=== PATIENT | male | born 2000 | race Caucasian/White ===

== ENCOUNTER 2024-06-10 11:03 | Emergency (ER) | payer BC, OTHER, SELFPAY ==
[2024-06-10 11:21] VITALS: BP 170/99; PULSE 98; RESP 18; TEMP 37.1; O2SAT 97; BMI 29.2
--- NOTE | 2024-06-10 11:22 | XR_ITS ---
Examination: Foot, right, 3 views Technique: AP, oblique, lateral views foot, 3 views Date and time of exam: January 09, 2024 1127 hrs. Indications: Injury to the foot today, foot pain no acute fracture No dislocation No foreign body Impression: No acute fracture
--- NOTE | 2024-06-10 11:22 | XR_ITS ---
EXAMINATION: Ankle, right 3 views . Technique: Ankle AP, oblique, lateral 3 views Date and time of exam: June 10, 2024 1112 hrs. Indications: Injury to the ankle today, ankle pain Findings: No acute fracture No interval dislocation Lateral malleolar soft tissue swelling Impression: No acute fracture
--- NOTE | 2024-06-10 11:59 | PD.EDLOWEX ---
Lower Extremity Injury RME/HPI General Chief Complaint: Extremity Injury, Lower Stated Complaint: RIGHT ANKLE INJURY Time Seen by Provider: 06/10/24 11:11 Arrival date/time: 06/10/24 11:03 23-year-old male presents emergency department complains of right foot and ankle swelling after injury while kicking a soccer ball yesterday. Limitations: no limitations Related Data Previous Rx's ?Medication ?Instructions ?Recorded Bacitracin/Polymyxin B Sulfate 3.5 gm OP TID 5 days ##0 03/05/13 (Bacit-Polymyxin Eye Oint) ibuprofen 800 mg tablet 800 mg PO TID PRN pain #30 tabs 06/10/24 Allergies Allergy/AdvReac Type Severity Reaction Status Date / Time NKA* Allergy Uncoded 06/10/24 11:05 Review of Systems Review of Systems Systems Reviewed: All systems reviewed, normal except as documented Constitutional Constitutional: Reports system reviewed and no additional complaints, except as documented, Denies fever(s) and Denies headache(s) Eyes Eyes: Reports system reviewed and no additional complaints, except as documented and Denies blurry vision ENT Ears, Nose, Mouth, and Throat: Reports system reviewed and no additional complaints, except as documented, Denies headache(s), Denies nasal congestion and Denies nasal discharge Cardiovascular Cardiovascular: Reports system reviewed and no additional complaints, except as documented, Denies chest pain and Denies dyspnea Respiratory Respiratory: Reports system reviewed and no additional complaints, except as documented, Denies chest congestion, Denies cough and Denies dyspnea Gastrointestinal Gastrointestinal: Reports system reviewed and no additional complaints, except as documented and Denies abdominal pain Musculoskeletal Musculoskeletal: Reports system reviewed and no additional complaints, except as documented, Reports abnormal gait, Reports arthralgias, Reports joint swelling, Reports stiffness and Denies tingling Integumentary/Breasts Skin/Breast: Reports system reviewed and no additional complaints, except as documented and Denies rash Neurologic Neurologic: Reports system reviewed and no additional complaints, except as documented, Reports as per HPI, Reports abnormal gait, Denies headache(s) and Denies tingling Past Medical History Social History SMOKING STATUS: Current every day smoker ED Exam General Limitations: Present no limitations General appearance: Present alert and in no apparent distress Head Head exam: Present atraumatic Eye Eye exam: Present normal appearance, PERRL and EOMI ENT ENT exam: Present normal exam, normal oropharynx and mucous membranes moist Neck Neck exam: Present normal inspection, full ROM and trachea midline Chest Chest inspection: Present normal inspection and symmetric chest wall rise Respiratory Respiratory exam: Present normal lung sounds bilaterally Cardiovascular Cardiovascular exam: Present regular rate, normal rhythm and normal heart sounds Abdominal Exam Abdominal exam: Present soft and normal bowel sounds Extremities Exam Extremities exam: Present normal inspection, full ROM, tenderness (Pain swelling right foot), normal capillary refill and joint swelling; Absent pedal edema or calf tenderness Back Exam Back exam: Present normal inspection and full ROM Neurological Exam Neurological exam: Present alert, oriented X3 and CN II-XII intact Psychiatric Psychiatric exam: Present normal affect and normal mood Skin Skin exam: Present warm, dry, intact and normal color Course Quality Measures none Orders Category Date Time Status Crutches .NOW Care 06/10/24 12:00 Completed remy wrap [Splint / Immobilizer] STAT Care 06/10/24 11:59 Completed XR ankle comp RT min 3V Stat Exams 06/10/24 11:22 Completed XR foot comp RT min 3V Stat Exams 06/10/24 11:22 Completed Ibuprofen Tab [Motrin Tab] Med 06/10/24 11:24 Discontinued 800 mg PO X1 ONE Vital Signs Vital signs: Vital Signs Temperature 98.8 F 06/10/24 11:21 Pulse Rate 98 06/10/24 11:21 Respiratory Rate 18 06/10/24 11:21 Blood Pressure 170/99 H 06/10/24 11:21 Pulse Oximetry (%) 97 06/10/24 11:21 Oxygen Delivery Method Room Air 06/10/24 11:21 O2 saturation 97% room air within the limits Extremity Injury, Lower MDM Narrative MDM Narrative:: 23-year-old male presents emergency department complains of right foot and ankle swelling after injury while kicking a soccer ball yesterday. On exam patient does not appear ill or toxic and in no acute distress X-ray of the right foot and ankle obtained no acute fracture dislocation noted Patient placed in Remy wrap and given crutches Patient struck to remain nonweightbearing If symptoms persist patient instructed to have outpatient MRI Patient discharged home in no distress to follow-up with primary care doctor in the next 24 to 48 hours and for any worsening symptoms to return to the ER immediately Patient data External records reviewed:: [facility] previous records Clinical information provided by:: patient Social determinants that could affect healthcare access:: none Patient has the following chronic illnesses:: none How is presenting disease/condition affected by chronic disease/condition?: no chronic disease Evaluation data The following diagnostics were reviewed and interpreted by me:: radiology exam(s) Lab and/or radiology exams considered but not ordered:: Radiology obtain Interpretation Summary: Reviewed by me Medications / Prescriptions Medications or Prescriptions considered but not ordered:: Given Medication administrations:: Medication Administration History Discontinued Medications Ibuprofen (Ibuprofen Tab 400 Mg Tablet) 800 mg PO X1 ONE Stop: 06/10/24 11:25 Last Admin: 06/10/24 12:15 Dose: Not Given Documented By: OA Non-Admin Reason: Patient Refused Given Consultations Consultation(s) initiated? (list below): No Diagnosis Extremity Injury, Lower Differential Diagnosis: ankle sprain and strain and ankle fracture Most likely diagnosis given after review of the tests above:: Foot sprain Admission Indicated Admission indicated?: not indicated Admission Request Was there a request for admission?: No Disposition Plan Disposition Plan: Discharge Discharge Attestation Discharge Attestation: The patient and all family members were given an opportunity to ask questions and understood the discharge instructions. Discharge instructions specifically effects, indications for sooner follow up or return to the emergency department, and the expected course of current diagnosis. Patient condition: Stable Discharge Plan Plan Patient Disposition: HOME (Self Care) Disposition Comment: Stable Prescriptions/Referrals Prescriptions/Med Rec: New ibuprofen 800 mg tablet 800 mg PO TID PRN (Reason: pain) Qty: 30 0RF No Action Bacitracin/Polymyxin B Sulfate (Bacit-Polymyxin Eye Oint) 3.5 GM OINT..GM. 3.5 gm OP TID 5 Days Qty: 0 0RF Referrals: All Josue MD [Primary Care Provider] - 06/12/24 Problem List Clinical Impression: Ankle sprain and strain Patient/Caregiver Discharge Instructions Additional Instructions: Please follow up with your primary care doctor in the next 24-48hrs for any worsening symptoms return here immediately Print Language: [place] Stand Alone Forms: Antonina Award Info., Work/School Release, Patient Portal Info Letter IVON/ALPA Supervising Physician PA/ALPA Supervising Physician: Dr Fall
== END 2024-06-10 12:38 | disposition home or self-care (01) ==
PROVIDERS: Emergency Provider Emergency Medicine; PCP Family Medicine
DX: S93.401A Sprain of unspecified ligament of right ankle, initial encounter (principal); S96.911A Strain of unspecified muscle and tendon at ankle and foot level, right foot, initial encounter; S99.921A Unspecified injury of right foot, initial encounter; W21.02XA Struck by soccer ball, initial encounter; Y93.66 Activity, soccer
CPT/HCPCS: 73610; 73630; 99283